=== PATIENT | male | born 1975 | race Two or more races ===

== ENCOUNTER 2021-10-15 12:35 | Emergency (ER) | payer OTHER ==
[~2021-10-15] VITALS: Ht 188 cm; Wt 106.6 kg
== END 2021-10-15 16:42 | disposition home or self-care (01) ==
LOC: ER 12:35
DX: N39.0 Urinary tract infection, site not specified (principal); R30.0 Dysuria; I10 Essential (primary) hypertension; E11.9 Type 2 diabetes mellitus without complications; N28.9 Disorder of kidney and ureter, unspecified; I51.9 Heart disease, unspecified